=== PATIENT | female | born 1975 | race African-American/Black ===

== ENCOUNTER 2021-09-17 12:02 | Inpatient (IN) | payer OTHER ==
[2021-09-17] MEDS ORDERED: LACTATED RINGERS SOLUTION 1000 ML INFUS.BAG IV ONE (12:19)
[2021-09-17] MEDS ORDERED: ONDANSETRON 4 MG/2 ML VIAL IVPUSH ONE ×2 (12:19→12:37)
[2021-09-17] MEDS ORDERED: SODIUM CHLORIDE 0.9% 500 ML INFUS.BAG IV ONE (12:19)
[2021-09-17] MEDS ORDERED: PANTOPRAZOLE SODIUM 40 MG VIAL IVPUSH ONE (12:20)
[2021-09-17] MEDS ORDERED: MEROPENEM 1 GM in DEXTROSE 5%-WATER 100 ML IVPB ONE ×2 (12:20→14:30)
[2021-09-17] MEDS ORDERED: MAGNESIUM SULF 50% (8.12 MEQ/2 ML-1 GM VIAL) IVPB ONE ×2 (12:36→15:15)
[2021-09-17] MEDS ORDERED: MEROPENEM 1 GM VIAL (RESTRICTED TO ID) IVPB ONE (12:42)
[2021-09-17] MEDS ORDERED: CALCIUM GLUCONATE 10% - 1,000 MG/10 ML VIAL ONE (12:42)
[2021-09-17] MEDS ORDERED: VANCOMYCIN 1 GRAM (PRE-DOCKED) 1,000 MG/250 ML BAG IVPB ONE (12:43)
[2021-09-17] MEDS ORDERED: MAGNESIUM 1GM/D5W - 1 GM/100 ML IVPB IVPB ONE (12:43)
[2021-09-17 12:55] LABS: HEMATOCRIT 30.1 % (32.4-45.2); MCH 29.8 pg (25.7-33.7); MCHC 26.7 g/dl (32.0-36.0); MEAN CELL VOLUME 111.4 fl (80-96); MEAN PLT VOLUME 8.1 fl (7.5-11.1); PLATELET COUNT 390 10^3/uL (134-434); RDW 18.4 % (11.6-15.6); WHITE BLOOD COUNT 12.8 K/mm3 (4.0-10.0)
[2021-09-17 13:00] LABS: INR 1.1 (0.83-1.09); PROTHROMBIN TIME (PATIENT) 12.7 SEC (9.7-13.0)
[2021-09-17 13:03] LABS: ACTIVATED PTT 33.3 SECONDS (25.2-36.5)
[2021-09-17 13:05] LABS: CHLORIDE 88 mmol/L (98-107); SODIUM 129 mmol/L (136-145)
[2021-09-17 13:07] LABS: CALCIUM 7.5 mg/dL (8.5-10.1)
[2021-09-17 13:09] LABS: ALBUMIN 3.6 g/dl (3.4-5.0); BLOOD UREA NITROGEN 100.5 mg/dL (7-18); CO2 5 mmol/L (21-32); MAGNESIUM 3.6 mg/dL (1.8-2.4)
[2021-09-17 13:11] LABS: CREATININE 6.9 mg/dL (0.55-1.3); SGOT/AST 48 U/L (15-37); SGPT/ALT 51 U/L (13-61)
[2021-09-17 13:12] LABS: BILIRUBIN,TOTAL 0.6 mg/dL (0.2-1)
[2021-09-17 13:13] LABS: ALK PHOS 125 U/L (45-117)
[2021-09-17] MEDS: VANCOMYCIN 1,000 MG in DEXTROSE 5%-WATER - 250 ML IVPB ONE ×2 (13:16→15:42)
[2021-09-17] MEDS ORDERED: SODIUM CHLORIDE 250 ML IV PRN (13:19)
[2021-09-17 13:33] LABS: VENOUS BASE EXCESS -27.3 mmol/L (-2-2); VENOUS O2 SATURATION 98.3 % (70-80); VENOUS PCO2 22.5 mmHg (38-52)
[2021-09-17 13:36] LABS: VENOUS PH 6.889 (7.310-7.410)
[2021-09-17 13:37] LABS: ANISOCYTOSIS 3+; MACROCYTOSIS 1+
[2021-09-17 13:40] LABS: ANION GAP 36 MMOL/L (8-16); GLUCOSE,RANDOM 1041 mg/dL (74-106); PHOSPHOROUS 11.8 mg/dL (2.5-4.9)
[2021-09-17] MEDS ORDERED: INSULIN REGULAR HUMAN 100 UNITS/ML *VIAL* (FOR IVP) IVPUSH ONE (13:44)
[2021-09-17] MEDS ORDERED: VANCOMYCIN/WATER FOR INJ (PEG) 1,000 MG/200 ML BAG IVPB ONE (13:45)
[2021-09-17] MEDS ORDERED: CALCIUM GLUCONATE IN NACL 1 GM/50 ML BAG IVPB ONE ×2 (13:45→15:15)
[2021-09-17] MEDS ORDERED: INSULIN REGULAR 100 UNITS in SODIUM CHLORIDE 99 ML IVPB SCH (13:45)
[2021-09-17] MEDS ORDERED: SODIUM BICARBONATE 8.4% - 150 MEQ in DEXTROSE 5%-WATER - 950 ML IV SCH (14:15)
[2021-09-17] MEDS: NOREPINEPHRINE BITARTRATE 16,000 MCG in SODIUM CHLORIDE 484 ML IV SCH (14:55)
[2021-09-17 17:07] LABS: HEMOGLOBIN 8.4 GM/dL (10.7-15.3); MCH 29.7 pg (25.7-33.7); MCHC 28.1 g/dl (32.0-36.0); MEAN CELL VOLUME 105.8 fl (80-96); MEAN PLT VOLUME 8.1 fl (7.5-11.1); PLATELET COUNT 486 10^3/uL (134-434); RBC 2.83 M/mm3 (3.60-5.2); RDW 17.3 % (11.6-15.6); WHITE BLOOD COUNT 19.3 K/mm3 (4.0-10.0)
[2021-09-17 17:38] LABS: VENOUS BASE EXCESS -24.7 mmol/L (-2-2); VENOUS O2 SATURATION 89.9 % (70-80); VENOUS PCO2 31.2 mmHg (38-52)
[2021-09-17 17:40] LABS: VENOUS PH 6.929 (7.310-7.410)
[2021-09-17 17:53] LABS: CHLORIDE 94 mmol/L (98-107); SODIUM 134 mmol/L (136-145)
[2021-09-17 17:55] LABS: CALCIUM 7.5 mg/dL (8.5-10.1)
[2021-09-17 17:57] LABS: ALBUMIN 3.7 g/dl (3.4-5.0); ANION GAP 31 MMOL/L (8-16); BLOOD UREA NITROGEN 96.3 mg/dL (7-18); CO2 8 mmol/L (21-32)
[2021-09-17 17:59] LABS: CREATININE 6.7 mg/dL (0.55-1.3); SGOT/AST 328 U/L (15-37); SGPT/ALT 152 U/L (13-61)
[2021-09-17 18:01] LABS: BILIRUBIN,TOTAL 0.6 mg/dL (0.2-1); TOT PROT 7.2 g/dl (6.4-8.2)
[2021-09-17 18:02] LABS: ALK PHOS 142 U/L (45-117)
[2021-09-17 18:05] LABS: GLUCOSE,RANDOM 794 mg/dL (74-106)
[2021-09-17] MEDS ORDERED: INSULIN (NOVOLOG) ASPART 100 UNITS/ML 10ML VIAL SQ ONE ×2 (18:23)
[2021-09-17] MEDS ORDERED: PROCHLORPERAZINE INJECTION 10 MG/2 ML VIAL IM ONE ×2 (18:36→22:26)
[2021-09-17 19:16] LABS: ARTERIAL BLD GAS O2 SATURATION 96.5 % (95-98); ARTERIAL BLOOD GAS BASE EXCESS -20.2 mmol/L (-2-2); ARTERIAL BLOOD GAS PO2 112.2 mmHg (80-100)
[2021-09-17 19:17] LABS: ALLENS TEST POSITIVE
[2021-09-17 19:19] LABS: ARTERIAL BLOOD GAS pH 7.107 (7.350-7.450)
[2021-09-17 19:31] LABS: HEMOGLOBIN 7.8 GM/dL (10.7-15.3); MCH 29.5 pg (25.7-33.7); MCHC 29.9 g/dl (32.0-36.0); MEAN CELL VOLUME 98.7 fl (80-96); MEAN PLT VOLUME 7.7 fl (7.5-11.1); PLATELET COUNT 459 10^3/uL (134-434); RBC 2.63 M/mm3 (3.60-5.2); RDW 16.5 % (11.6-15.6); WHITE BLOOD COUNT 18.9 K/mm3 (4.0-10.0)
[2021-09-17 19:49] LABS: CHLORIDE 98 mmol/L (98-107); SODIUM 137 mmol/L (136-145)
[2021-09-17 19:50] LABS: ANION GAP 29 MMOL/L (8-16); CALCIUM 7.3 mg/dL (8.5-10.1); CO2 11 mmol/L (21-32)
[2021-09-17 19:51] LABS: BLOOD UREA NITROGEN 96.1 mg/dL (7-18)
[2021-09-17 19:54] LABS: CREATININE 6.5 mg/dL (0.55-1.3)
[2021-09-17 20:10] LABS: GLUCOSE,RANDOM 548 mg/dL (74-106)
[2021-09-17] MEDS ORDERED: PROCHLORPERAZINE INJECTION 10 MG/2 ML VIAL ONE (20:13)
[2021-09-17 20:37] LABS: ANISOCYTOSIS 2+; MACROCYTOSIS 0; OVALOCYTE 2+
[2021-09-17 20:46] LABS: CHLORIDE 99 mmol/L (98-107); SODIUM 138 mmol/L (136-145)
[2021-09-17 20:47] LABS: CALCIUM 7.4 mg/dL (8.5-10.1)
[2021-09-17 20:48] LABS: ANION GAP 28 MMOL/L (8-16); BLOOD UREA NITROGEN 97.8 mg/dL (7-18); CO2 12 mmol/L (21-32)
[2021-09-17 20:51] LABS: CREATININE 6.7 mg/dL (0.55-1.3)
[2021-09-17 20:57] LABS: GLUCOSE,RANDOM 432 mg/dL (74-106)
[2021-09-17] MEDS: CHLORHEXIDINE GLUCONATE 4% CLEANSER FOR DECOLONIZATION TP SCH (22:52)
[2021-09-17] MEDS: MUPIROCIN 2% TOPICAL OINTMENT FOR DECOLONIZATION NS SCH (23:16)
[2021-09-18] MEDS ORDERED: DEXTROSE 50%-WATER - 25 GM/50 ML VIAL IVPUSH PRN ×2 (00:05→00:09)
[2021-09-18] MEDS ORDERED: DEXTROSE 50%-WATER 25 GM/50 ML DISP.SYRIN ONE ×2 (00:09→11:28)
[2021-09-18 01:57] LABS: CALCIUM 7.6 mg/dL (8.5-10.1)
[2021-09-18 02:01] LABS: CREATININE 2.6 mg/dL (0.55-1.3)
[2021-09-18] MEDS ORDERED: INSULIN (LEVEMIR) 100 UNITS/ML UNITS SQ ONE (02:02)
[2021-09-18 02:04] LABS: BLOOD UREA NITROGEN 28.8 mg/dL (7-18)
[2021-09-18 04:14] LABS: CALCIUM 7.2 mg/dL (8.5-10.1)
[2021-09-18 04:15] LABS: ALBUMIN 3.3 g/dl (3.4-5.0); BLOOD UREA NITROGEN 32.5 mg/dL (7-18)
[2021-09-18 04:18] LABS: CREATININE 2.9 mg/dL (0.55-1.3)
[2021-09-18 04:19] LABS: TOT PROT 6.2 g/dl (6.4-8.2)
[2021-09-18 04:20] LABS: BILIRUBIN,TOTAL 0.5 mg/dL (0.2-1)
[2021-09-18 06:23] LABS: ALLENS TEST POSITIVE; ARTERIAL BLD GAS O2 SATURATION 95.4 % (95-98); ARTERIAL BLOOD GAS PO2 70.7 mmHg (80-100); ARTERIAL BLOOD GAS pH 7.486 (7.350-7.450)
[2021-09-18] MEDS ORDERED: MEROPENEM 1 GM in SODIUM CHLORIDE 100 ML IVPB ONE (06:50)
[2021-09-18 07:00] LABS: BASO % 0.3 % (0-2.0); EOS % 0.3 % (0-4.5); HEMATOCRIT 24.1 % (32.4-45.2); HEMOGLOBIN 7.9 GM/dL (10.7-15.3); LYMPH % 9.3 % (8-40); MCH 29.8 pg (25.7-33.7); MCHC 32.6 g/dl (32.0-36.0); MEAN PLT VOLUME 7.4 fl (7.5-11.1); MONO % 10.2 % (3.8-10.2); NEUT % 79.9 % (42.8-82.8); PLATELET COUNT 362 10^3/uL (134-434); RBC 2.64 M/mm3 (3.60-5.2); RDW 15.9 % (11.6-15.6); WHITE BLOOD COUNT 12.5 K/mm3 (4.0-10.0)
[2021-09-18 07:04] LABS: MEAN CELL VOLUME 91.3 fl (80-96)
[2021-09-18] MEDS ORDERED: MEROPENEM 1 GM VIAL (RESTRICTED TO ID) IVPB ONE (07:04)
[2021-09-18] MEDS ORDERED: SODIUM CHLORIDE 100 ML IVPB ONE (07:05)
[2021-09-18] MEDS: INSULIN (LEVEMIR) 100 UNITS/ML UNITS SQ SCH ×2 (07:08→22:36)
[2021-09-18] MEDS: INSULIN SLIDING SCALE (NOVOLOG) 1 VIAL SQ SCH ×4 (07:08→22:18)
[2021-09-18 07:19] LABS: CALCIUM 7.2 mg/dL (8.5-10.1)
[2021-09-18 07:20] LABS: ALBUMIN 3.2 g/dl (3.4-5.0); BLOOD UREA NITROGEN 34.6 mg/dL (7-18); MAGNESIUM 2.2 mg/dL (1.8-2.4)
[2021-09-18 07:23] LABS: PHOSPHOROUS 3.9 mg/dL (2.5-4.9)
[2021-09-18 07:25] LABS: BILIRUBIN,TOTAL 0.4 mg/dL (0.2-1); CREATININE 3.2 mg/dL (0.55-1.3)
[2021-09-18 07:27] LABS: TOT PROT 6.2 g/dl (6.4-8.2)
[2021-09-18] MEDS: PANTOPRAZOLE SODIUM 40 MG VIAL IVPUSH SCH ×2 (09:21→21:27)
[2021-09-18] MEDS ORDERED: VANCOMYCIN 1 GM in D5W (PRE-DOCKED) 1,000 MG/250 ML IVPB ONE (09:48)
[2021-09-18] MEDS ORDERED: PIPERACILLIN/TAZOB 2.25 GM 2.25 GM in DEXTROSE 5%-WATER - 50 ML IVPB SCH (10:00)
[2021-09-18] MEDS ORDERED: VANCOMYCIN/WATER FOR INJ (PEG) 1,000 MG/200 ML BAG IVPB ONE (10:00)
[2021-09-18] MEDS ORDERED: PIPERACILLIN/TAZOBACTAM 2.25 GM VIAL IVPB ONE ×2 (10:24→17:46)
[2021-09-18] MEDS ORDERED: DEXTROSE 5%-WATER - 50 ML IVPB ONE ×2 (10:24→17:46)
[2021-09-18] MEDS: MUPIROCIN 2% TOPICAL OINTMENT FOR DECOLONIZATION NS SCH ×2 (10:27→22:45)
[2021-09-18] MEDS: DEXTROSE 50%-WATER - 25 GM/50 ML VIAL IVPUSH PRN (11:29)
[2021-09-18] MEDS: NOREPINEPHRINE BITARTRATE 16,000 MCG in SODIUM CHLORIDE 484 ML IV SCH (17:39)
[2021-09-18] MEDS: PIPERACILLIN/TAZOB 2.25 GM 2.25 GM in DEXTROSE 5%-WATER - 50 ML IVPB SCH (18:30)
[2021-09-18] MEDS: CHLORHEXIDINE GLUCONATE 4% CLEANSER FOR DECOLONIZATION TP SCH (21:27)
[2021-09-18] MEDS ORDERED: MELATONIN 5 MG TABLETS PO ONE (23:20)
[2021-09-19] MEDS ORDERED: DEXTROSE 5%-WATER - 50 ML IVPB ONE ×3 (02:43→15:51)
[2021-09-19] MEDS ORDERED: PIPERACILLIN/TAZOBACTAM 2.25 GM VIAL IVPB ONE ×3 (02:43→15:51)
[2021-09-19] MEDS: PIPERACILLIN/TAZOB 2.25 GM 2.25 GM in DEXTROSE 5%-WATER - 50 ML IVPB SCH ×3 (02:48→17:32)
[2021-09-19] MEDS ORDERED: DEXTROSE 50%-WATER 25 GM/50 ML DISP.SYRIN ONE (06:13)
[2021-09-19] MEDS: DEXTROSE 50%-WATER - 25 GM/50 ML VIAL IVPUSH PRN (06:24)
[2021-09-19 06:47] LABS: HEMATOCRIT 23.4 % (32.4-45.2); HEMOGLOBIN 7.6 GM/dL (10.7-15.3); MCH 29.5 pg (25.7-33.7); MCHC 32.6 g/dl (32.0-36.0); MEAN CELL VOLUME 90.6 fl (80-96); MEAN PLT VOLUME 7.4 fl (7.5-11.1); PLATELET COUNT 308 10^3/uL (134-434); RBC 2.58 M/mm3 (3.60-5.2); RDW 16.1 % (11.6-15.6); WHITE BLOOD COUNT 9.3 K/mm3 (4.0-10.0)
[2021-09-19] MEDS: INSULIN SLIDING SCALE (NOVOLOG) 1 VIAL SQ SCH ×4 (06:51→21:07)
[2021-09-19] MEDS ORDERED: INSULIN (LEVEMIR) 100 UNITS/ML UNITS SQ SCH ×2 (07:00→22:00)
[2021-09-19 07:04] LABS: CHLORIDE 103 mmol/L (98-107); SODIUM 143 mmol/L (136-145)
[2021-09-19 07:06] LABS: ALBUMIN 3.1 g/dl (3.4-5.0); ANION GAP 12 MMOL/L (8-16); BLOOD UREA NITROGEN 45.2 mg/dL (7-18); CALCIUM 7.4 mg/dL (8.5-10.1); CO2 28 mmol/L (21-32); MAGNESIUM 2.3 mg/dL (1.8-2.4)
[2021-09-19 07:09] LABS: PHOSPHOROUS 5.5 mg/dL (2.5-4.9); SGPT/ALT 100 U/L (13-61)
[2021-09-19 07:10] LABS: CREATININE 4.4 mg/dL (0.55-1.3); SGOT/AST 128 U/L (15-37)
[2021-09-19 07:11] LABS: BILIRUBIN,TOTAL 0.4 mg/dL (0.2-1)
[2021-09-19 07:12] LABS: ALK PHOS 114 U/L (45-117)
[2021-09-19 07:30] LABS: GLUCOSE,RANDOM 29 mg/dL (74-106)
[2021-09-19] MEDS: MUPIROCIN 2% TOPICAL OINTMENT FOR DECOLONIZATION NS SCH ×2 (10:23→21:07)
[2021-09-19] MEDS: PANTOPRAZOLE SODIUM 40 MG VIAL IVPUSH SCH ×2 (10:24→21:06)
[2021-09-19] MEDS ORDERED: hydrALAZINE HCL 20 MG/ML VIAL IVPUSH ONE ×2 (10:35→12:23)
[2021-09-19] MEDS ORDERED: INSULIN (NOVOLOG) ASPART 100 UNITS/ML 10ML VIAL SQ ONE ×2 (17:31→18:44)
[2021-09-19] MEDS: CHLORHEXIDINE GLUCONATE 4% CLEANSER FOR DECOLONIZATION TP SCH (21:07)
[2021-09-19] MEDS: INSULIN (LEVEMIR) 100 UNITS/ML UNITS SQ SCH (21:07)
[2021-09-20] MEDS ORDERED: PIPERACILLIN/TAZOBACTAM 2.25 GM VIAL IVPB ONE ×3 (01:52→16:53)
[2021-09-20] MEDS ORDERED: DEXTROSE 5%-WATER - 50 ML IVPB ONE ×3 (01:52→16:54)
[2021-09-20] MEDS: PIPERACILLIN/TAZOB 2.25 GM 2.25 GM in DEXTROSE 5%-WATER - 50 ML IVPB SCH ×3 (02:05→18:10)
[2021-09-20] MEDS ORDERED: DEXTROSE 50%-WATER 25 GM/50 ML DISP.SYRIN ONE (03:17)
[2021-09-20] MEDS: DEXTROSE 50%-WATER - 25 GM/50 ML VIAL IVPUSH PRN (03:45)
[2021-09-20] MEDS: INSULIN SLIDING SCALE (NOVOLOG) 1 VIAL SQ SCH ×4 (06:44→22:18)
[2021-09-20] MEDS: INSULIN (LEVEMIR) 100 UNITS/ML UNITS SQ SCH ×2 (06:45→22:18)
[2021-09-20] MEDS ORDERED: hydrALAZINE HCL 20 MG/ML VIAL IVPUSH ONE (09:30)
[2021-09-20] MEDS: amLODIPine BESYLATE 5 MG TABLET (FP) PO SCH (09:48)
[2021-09-20] MEDS: MUPIROCIN 2% TOPICAL OINTMENT FOR DECOLONIZATION NS SCH ×2 (09:48→21:17)
[2021-09-20] MEDS: PANTOPRAZOLE SODIUM 40 MG VIAL IVPUSH SCH ×2 (09:49→21:17)
[2021-09-20] MEDS ORDERED: hydrALAZINE HCL 10 MG TABLET PO ONE ×2 (10:41→11:30)
[2021-09-20] MEDS ORDERED: SODIUM CHLORIDE 250 ML IV PRN (11:33)
[2021-09-20 12:15] LABS: BASO % 0.8 % (0-2.0); EOS % 0.9 % (0-4.5); HEMATOCRIT 28.6 % (32.4-45.2); HEMOGLOBIN 9.3 GM/dL (10.7-15.3); MCH 29.9 pg (25.7-33.7); MCHC 32.6 g/dl (32.0-36.0); MEAN CELL VOLUME 91.5 fl (80-96); MEAN PLT VOLUME 7.7 fl (7.5-11.1); MONO % 6.7 % (3.8-10.2); NEUT % 75.6 % (42.8-82.8); PLATELET COUNT 401 10^3/uL (134-434); RBC 3.13 M/mm3 (3.60-5.2); RDW 16.3 % (11.6-15.6); WHITE BLOOD COUNT 7.6 K/mm3 (4.0-10.0)
[2021-09-20] MEDS ORDERED: EPOETIN ALFA-EPBX 4,000 UNIT/ML VIAL SQ ONE (12:15)
[2021-09-20 12:48] LABS: ALBUMIN 3.1 g/dl (3.4-5.0); CALCIUM 7.5 mg/dL (8.5-10.1); MAGNESIUM 2.4 mg/dL (1.8-2.4)
[2021-09-20 12:52] LABS: TOT PROT 6.1 g/dl (6.4-8.2)
[2021-09-20 12:53] LABS: BILIRUBIN,TOTAL 0.6 mg/dL (0.2-1)
[2021-09-20] MEDS ORDERED: hydrALAZINE HCL 10 MG TABLET PO SCH (14:00)
[2021-09-20] MEDS: hydrALAZINE HCL 25 MG TABLET (FP) PO SCH (21:17)
[2021-09-20] MEDS: CHLORHEXIDINE GLUCONATE 4% CLEANSER FOR DECOLONIZATION TP SCH (21:17)
[2021-09-21] MEDS ORDERED: DEXTROSE 5%-WATER - 50 ML IVPB ONE ×2 (02:18→09:52)
[2021-09-21] MEDS ORDERED: PIPERACILLIN/TAZOBACTAM 2.25 GM VIAL IVPB ONE ×2 (02:18→09:52)
[2021-09-21] MEDS: PIPERACILLIN/TAZOB 2.25 GM 2.25 GM in DEXTROSE 5%-WATER - 50 ML IVPB SCH ×2 (02:29→09:58)
[2021-09-21] MEDS: hydrALAZINE HCL 25 MG TABLET (FP) PO SCH ×3 (05:23→22:26)
[2021-09-21 06:38] LABS: BASO % 0.9 % (0-2.0); EOS % 3.1 % (0-4.5); HEMATOCRIT 24.6 % (32.4-45.2); HEMOGLOBIN 8.1 GM/dL (10.7-15.3); LYMPH % 28.8 % (8-40); MCH 29.8 pg (25.7-33.7); MCHC 32.8 g/dl (32.0-36.0); MEAN PLT VOLUME 7.6 fl (7.5-11.1); NEUT % 58.2 % (42.8-82.8); PLATELET COUNT 335 10^3/uL (134-434); RBC 2.71 M/mm3 (3.60-5.2); RDW 16.1 % (11.6-15.6); WHITE BLOOD COUNT 6.4 K/mm3 (4.0-10.0)
[2021-09-21] MEDS: INSULIN SLIDING SCALE (NOVOLOG) 1 VIAL SQ SCH ×4 (06:50→22:27)
[2021-09-21] MEDS: INSULIN (LEVEMIR) 100 UNITS/ML UNITS SQ SCH ×2 (07:04→22:26)
[2021-09-21 07:10] LABS: CALCIUM 7.3 mg/dL (8.5-10.1); MAGNESIUM 2.1 mg/dL (1.8-2.4)
[2021-09-21 07:13] LABS: CREATININE 3.7 mg/dL (0.55-1.3); PHOSPHOROUS 4.1 mg/dL (2.5-4.9)
[2021-09-21 07:15] LABS: BILIRUBIN,TOTAL 0.5 mg/dL (0.2-1)
[2021-09-21 07:18] LABS: BLOOD UREA NITROGEN 21.5 mg/dL (7-18)
[2021-09-21] MEDS: PANTOPRAZOLE 20 MG TABLET PO SCH (09:57)
[2021-09-21] MEDS: amLODIPine BESYLATE 5 MG TABLET (FP) PO SCH (09:57)
[2021-09-21] MEDS ORDERED: DEXTROSE 50%-WATER - 25 GM/50 ML VIAL IVPUSH PRN (10:05)
[2021-09-21] MEDS ORDERED: amLODIPine BESYLATE 5 MG TABLET (FP) PO ONE (11:47)
[2021-09-21] MEDS ORDERED: hydrALAZINE HCL 20 MG/ML VIAL IVPUSH ONE (11:49)
[2021-09-21 14:33] VITALS: BMI 22.8
[2021-09-21] MEDS ORDERED: SODIUM CHLORIDE 250 ML IV PRN (17:14)
[2021-09-21] MEDS ORDERED: PIPERACILLIN/TAZOB 2.25 GM 2.25 GM in DEXTROSE 5%-WATER - 50 ML IVPB SCH (18:00)
[2021-09-21] MEDS: MUPIROCIN 2% TOPICAL OINTMENT FOR DECOLONIZATION NS SCH (23:09)
[2021-09-22] MEDS: hydrALAZINE HCL 25 MG TABLET (FP) PO SCH ×3 (06:08→23:33)
[2021-09-22] MEDS: INSULIN SLIDING SCALE (NOVOLOG) 1 VIAL SQ SCH ×4 (06:55→23:33)
[2021-09-22] MEDS ORDERED: EPOETIN ALFA-EPBX 4,000 UNIT/ML VIAL IVPUSH ONE (08:00)
[2021-09-22 09:01] LABS: HEMATOCRIT 27.1 % (32.4-45.2); HEMOGLOBIN 8.8 GM/dL (10.7-15.3); LYMPH % 22.9 % (8-40); MCH 29.7 pg (25.7-33.7); MCHC 32.5 g/dl (32.0-36.0); MEAN CELL VOLUME 91.4 fl (80-96); MEAN PLT VOLUME 7.6 fl (7.5-11.1); NEUT % 61.1 % (42.8-82.8); PLATELET COUNT 382 10^3/uL (134-434); RBC 2.96 M/mm3 (3.60-5.2); RDW 16.2 % (11.6-15.6); WHITE BLOOD COUNT 6.7 K/mm3 (4.0-10.0)
[2021-09-22 09:21] LABS: BLOOD UREA NITROGEN 36.8 mg/dL (7-18)
[2021-09-22 09:23] LABS: CALCIUM 7.1 mg/dL (8.5-10.1); MAGNESIUM 2.3 mg/dL (1.8-2.4)
[2021-09-22 09:24] LABS: PHOSPHOROUS 5.3 mg/dL (2.5-4.9)
[2021-09-22 09:26] LABS: BILIRUBIN,TOTAL 0.6 mg/dL (0.2-1); TOT PROT 5.9 g/dl (6.4-8.2)
[2021-09-22] MEDS: INSULIN (LEVEMIR) 100 UNITS/ML UNITS SQ SCH (09:29)
[2021-09-22] MEDS ORDERED: CIPROFLOXACIN 250 MG TABLET (RESTRICTED TO ID) PO SCH (10:00)
[2021-09-22] MEDS: PANTOPRAZOLE 20 MG TABLET PO SCH (12:01)
[2021-09-22] MEDS: amLODIPine BESYLATE 10 MG TABLET (FP) PO SCH (12:01)
[2021-09-23] MEDS: hydrALAZINE HCL 25 MG TABLET (FP) PO SCH ×3 (06:54→22:10)
[2021-09-23] MEDS: INSULIN SLIDING SCALE (NOVOLOG) 1 VIAL SQ SCH ×4 (06:54→22:12)
[2021-09-23] MEDS ORDERED: INSULIN (LEVEMIR) 100 UNITS/ML UNITS SQ ONE (07:34)
[2021-09-23 09:01] LABS: BASO % 0.8 % (0-2.0); EOS % 6.2 % (0-4.5); HEMATOCRIT 27.1 % (32.4-45.2); HEMOGLOBIN 8.7 GM/dL (10.7-15.3); MCH 29.7 pg (25.7-33.7); MCHC 31.9 g/dl (32.0-36.0); MEAN CELL VOLUME 92.9 fl (80-96); MEAN PLT VOLUME 7.3 fl (7.5-11.1); MONO % 7.2 % (3.8-10.2); NEUT % 63.8 % (42.8-82.8); PLATELET COUNT 351 10^3/uL (134-434); RBC 2.92 M/mm3 (3.60-5.2); RDW 16.3 % (11.6-15.6); WHITE BLOOD COUNT 6.7 K/mm3 (4.0-10.0)
[2021-09-23 09:35] LABS: CALCIUM 7.9 mg/dL (8.5-10.1)
[2021-09-23 09:36] LABS: BLOOD UREA NITROGEN 30.5 mg/dL (7-18); MAGNESIUM 2.2 mg/dL (1.8-2.4)
[2021-09-23 09:39] LABS: CREATININE 4.1 mg/dL (0.55-1.3); PHOSPHOROUS 4.5 mg/dL (2.5-4.9)
[2021-09-23 09:40] LABS: BILIRUBIN,TOTAL 0.9 mg/dL (0.2-1); TOT PROT 5.9 g/dl (6.4-8.2)
[2021-09-23] MEDS: amLODIPine BESYLATE 10 MG TABLET (FP) PO SCH (09:56)
[2021-09-23] MEDS: PANTOPRAZOLE 20 MG TABLET PO SCH (09:56)
[2021-09-23] MEDS: INSULIN (LEVEMIR) 100 UNITS/ML UNITS SQ SCH (22:09)
[2021-09-24] MEDS: INSULIN SLIDING SCALE (NOVOLOG) 1 VIAL SQ SCH ×4 (06:21→21:30)
[2021-09-24] MEDS: hydrALAZINE HCL 25 MG TABLET (FP) PO SCH ×3 (06:23→21:31)
[2021-09-24] MEDS: INSULIN (LEVEMIR) 100 UNITS/ML UNITS SQ SCH ×2 (06:29→21:30)
[2021-09-24] MEDS ORDERED: SODIUM CHLORIDE 250 ML IV PRN (09:47)
[2021-09-24] MEDS ORDERED: EPOETIN ALFA-EPBX 4,000 UNIT/ML VIAL IVPUSH ONE (11:00)
[2021-09-24] MEDS: amLODIPine BESYLATE 10 MG TABLET (FP) PO SCH (13:04)
[2021-09-24] MEDS: PANTOPRAZOLE 20 MG TABLET PO SCH (15:04)
[2021-09-25] MEDS: hydrALAZINE HCL 25 MG TABLET (FP) PO SCH ×3 (06:02→21:07)
[2021-09-25] MEDS: INSULIN SLIDING SCALE (NOVOLOG) 1 VIAL SQ SCH ×4 (06:03→21:07)
[2021-09-25] MEDS: amLODIPine BESYLATE 10 MG TABLET (FP) PO SCH (10:34)
[2021-09-25] MEDS: PANTOPRAZOLE 20 MG TABLET PO SCH (10:34)
[2021-09-25] MEDS: INSULIN (LEVEMIR) 100 UNITS/ML UNITS SQ SCH ×2 (10:35→21:07)
[2021-09-26] MEDS: hydrALAZINE HCL 25 MG TABLET (FP) PO SCH ×3 (05:38→22:25)
[2021-09-26] MEDS: INSULIN SLIDING SCALE (NOVOLOG) 1 VIAL SQ SCH ×4 (06:09→22:21)
[2021-09-26] MEDS: INSULIN (LEVEMIR) 100 UNITS/ML UNITS SQ SCH ×2 (06:54→22:20)
[2021-09-26] MEDS: amLODIPine BESYLATE 10 MG TABLET (FP) PO SCH (10:30)
[2021-09-26] MEDS: PANTOPRAZOLE 20 MG TABLET PO SCH (10:30)
[2021-09-26] MEDS ORDERED: LISINOPRIL 5 MG TABLET PO ONE (10:50)
[2021-09-27] MEDS: hydrALAZINE HCL 25 MG TABLET (FP) PO SCH ×2 (06:00→06:53)
[2021-09-27] MEDS: INSULIN (LEVEMIR) 100 UNITS/ML UNITS SQ SCH (06:54)
[2021-09-27] MEDS: INSULIN SLIDING SCALE (NOVOLOG) 1 VIAL SQ SCH ×3 (06:54→18:46)
[2021-09-27] MEDS ORDERED: EPOETIN ALFA-EPBX 4,000 UNIT/ML VIAL SQ ONE (10:00)
[2021-09-27] MEDS ORDERED: SODIUM CHLORIDE 250 ML IV PRN (10:00)
[2021-09-27 10:18] LABS: BASO % 0.7 % (0-2.0); EOS % 4.9 % (0-4.5); HEMATOCRIT 24.9 % (32.4-45.2); HEMOGLOBIN 8.2 GM/dL (10.7-15.3); LYMPH % 14.9 % (8-40); MCH 29.8 pg (25.7-33.7); MCHC 32.9 g/dl (32.0-36.0); MEAN CELL VOLUME 90.7 fl (80-96); MEAN PLT VOLUME 7.1 fl (7.5-11.1); MONO % 5.7 % (3.8-10.2); NEUT % 73.8 % (42.8-82.8); PLATELET COUNT 322 10^3/uL (134-434); RBC 2.74 M/mm3 (3.60-5.2); RDW 16.6 % (11.6-15.6); WHITE BLOOD COUNT 6.9 K/mm3 (4.0-10.0)
[2021-09-27 10:46] LABS: ALBUMIN 2.9 g/dl (3.4-5.0); CALCIUM 7.8 mg/dL (8.5-10.1)
[2021-09-27 10:47] LABS: BLOOD UREA NITROGEN 41.8 mg/dL (7-18); MAGNESIUM 2.2 mg/dL (1.8-2.4)
[2021-09-27 10:49] LABS: CREATININE 4.5 mg/dL (0.55-1.3)
[2021-09-27 10:50] LABS: BILIRUBIN,TOTAL 0.6 mg/dL (0.2-1)
[2021-09-27] MEDS ORDERED: hydrALAZINE HCL 50 MG TABLET (FP) PO SCH (13:00)
[2021-09-27] MEDS: amLODIPine BESYLATE 10 MG TABLET (FP) PO SCH (13:03)
[2021-09-27] MEDS: PANTOPRAZOLE 20 MG TABLET PO SCH (13:04)
[2021-09-27] MEDS ORDERED: LISINOPRIL 5 MG TABLET PO SCH (14:30)
[2021-09-27 19:46] VITALS: BP 177/91; PULSE 111; TEMP 98.8
== END 2021-09-27 19:00 | DRG 420 ==
LOC: JER 12:02 → JERBED 12:21 → JICU 21:41 → J5S 09-21 18:39
PROVIDERS: ADMIT Internal Medicine; ATTEND Nurse Practitioner Family
PROC: 5A1D70Z Performance of Urinary Filtration, Intermittent, Less than 6 Hours Per Day (ICD-10-PCS; principal; 2021-09-17)
PROC: 5A1D70Z Performance of Urinary Filtration, Intermittent, Less than 6 Hours Per Day (ICD-10-PCS; 2021-09-20)
PROC: 5A1D70Z Performance of Urinary Filtration, Intermittent, Less than 6 Hours Per Day (ICD-10-PCS; 2021-09-22)
PROC: 5A1D70Z Performance of Urinary Filtration, Intermittent, Less than 6 Hours Per Day (ICD-10-PCS; 2021-09-24)
PROC: 5A1D70Z Performance of Urinary Filtration, Intermittent, Less than 6 Hours Per Day (ICD-10-PCS; 2021-09-27)
DX: E11.10 Type 2 diabetes mellitus with ketoacidosis without coma (principal); K92.0 Hematemesis; K92.2 Gastrointestinal hemorrhage, unspecified; E87.5 Hyperkalemia; E11.22 Type 2 diabetes mellitus with diabetic chronic kidney disease; E11.65 Type 2 diabetes mellitus with hyperglycemia; E11.649 Type 2 diabetes mellitus with hypoglycemia without coma; D72.829 Elevated white blood cell count, unspecified; K76.89 Other specified diseases of liver; I12.0 Hypertensive chronic kidney disease with stage 5 chronic kidney disease or end stage renal disease; N18.6 End stage renal disease; Z99.2 Dependence on renal dialysis; E78.5 Hyperlipidemia, unspecified; E11.21 Type 2 diabetes mellitus with diabetic nephropathy; E11.40 Type 2 diabetes mellitus with diabetic neuropathy, unspecified; E11.319 Type 2 diabetes mellitus with unspecified diabetic retinopathy without macular edema; I69.351 Hemiplegia and hemiparesis following cerebral infarction affecting right dominant side; D64.9 Anemia, unspecified; I95.9 Hypotension, unspecified
CPT/HCPCS: 0241U-QW; 36415; 36600; 70450-TC; 71045-TC-FY; 74018-TC-FY; 80048; 80053; 82010; 82272; 82607; 82746; 82803; 82962; 83605; 83735; 84100; 84484; 84703; 85025; 85027; 85610; 85730; 86704; 86708; 86803; 86850; 86900; 86901; 87040; 87340; 87517; 93005; 93010; 94010; 97116-GP; 97162-GP; 99291; 99292; C9803-CS; G0480; Q5106; U0003; U0005